=== PATIENT | male | born 1935 | race Caucasian/White ===

== ENCOUNTER 2017-04-18 21:54 | Inpatient (IN) | payer MEDICARE, OTHER ==
--- NOTE | 2017-04-18 22:16 | ERNOTE ---
Neuro HPI ER Record Presenting Symptoms: weakness, numbness, facial droop Time Seen by Provider: 04/18/17 21:56 Source: patient Exam Limitations: clinical condition Allergies/Adverse Reactions: Allergies Allergy/AdvReac Type Severity Reaction Status Date / Time No Known Allergies Allergy Unverified 04/18/17 22:09 Home Medications: HOME MEDICATIONS Bisacodyl [Laxative] 10 mg PO DAILY PRN 04/19/17 [Last Taken Unknown] Diltiazem HCl [Cardizem] 120 mg PO TID 04/19/17 [Last Taken Unknown] LORazepam [Ativan] 0.5 mg PO BID PRN 04/19/17 [Last Taken Unknown] Mirtazapine [Remeron] 15 mg PO HS 04/19/17 [Last Taken Unknown] Nutritional Supplement [Resource 2.0] 237 ml PO BID 04/19/17 [Last Taken Unknown ] Sennosides [Senna Lax] 8.6 mg PO Q2D 04/19/17 [Last Taken Unknown] carBAMazepine [Tegretol Chewable Tablets] 100 tab PO HS 04/19/17 [Last Taken Unknown] carBAMazepine [Tegretol Chewable Tablets] 200 mg PO DAILY 04/19/17 [Last Taken Unknown] fentaNYL [Duragesic] 75 mcg TD Q72H 04/19/17 [Last Taken 04/18/17 20:00] oxyCODONE HCL/ACETAMINOPHEN [Percocet 10-325 mg Tablet] 1 each PO QID PRN [Last Taken Unknown] - History of Present Illness Narrative: Care center stated that the patient was found sometime between 18:00 and 19:00 with left side weakness, facial droop and decreased mental status. Onset: cannot confirm onset, >3 hours Severity: moderate, severe - Character of Deficits New weakness: Present: LUE, LLE, facial (lt) Additional Deficits: Present: bed-ridden Associated Symptoms: Reports: fever/chills, altered mental status Review of Systems - Review of Systems Constitutional: Absent: recent illness EYE: Present: no symptoms reported ENT: Present: no symptoms reported Respiratory: Absent: cough Gastrointestinal/Abdominal: Absent: nausea, vomiting, diarrhea Genitourinary: Present: no symptoms reported Musculoskeletal: Present: no symptoms reported Skin: Present: no symptoms reported Neurological: Present: no symptoms reported Endocrine: Present: no symptoms reported Hematologic/Lymphatic: Present: no symptoms reported Psych: Present: no symptoms reported - Patient's Past Medical History Patient History - Medical: Alzheimer's Disease, Dementia, Renal Disease Patient History - Cardiac/Respiratory: CVA/Stroke - Family History Mother Family History - Medical: , No pertinent hx Father Family History - Medical: , No pertinent hx - Social History Living Situations: spouse Physical Exam - Physical Exam General Appearance: Present: wd/wn, lethargic Head Exam: Present: no evidence of injury, no tenderness w palpation Eye Exam: PERRL: bilateral Ears, Nose, Throat: Present: normal ENT inspection Neck: Present: normal inspection, nontender Respiratory: Present: no respiratory distress, normal breath sounds, no accessory muscle use, lungs clear Cardiovascular/Chest: Present: regular rate, rhythm, no murmur, normal peripheral pulses Gastrointestinal/Abdominal: Present: normal bowel sounds, nontender, nondistended, soft Back Exam: Present: normal inspection, normal range of motion Neurological Exam: Present: alert Skin Exam: Present: normal color, warm/dry Lymphatic Exam: Present: no adenopathy Jasmine Coma Scale - Assess Eye Opening: To Pain Motor: Obeys Commands Verbal: Confused - Total Coma Scale Total: 12 Initial Stroke Assessment - Date/Time of assessment Stroke Scale Date: 04/18/17 Stroke Scale Time: 22:03 - NIH Stroke Scale Level of Consciousness: Stuporus LOC Questions (Year and Age): Answers neither correctly LOC Commands (open/close eyes/fist): Performs both correctly Lateral Gaze Paresis: None Visual Field Loss: No visual loss Facial Palsy: Minor paralysis Dysarthria (speech clarity): Slurring, unintelligble Stroke Inclusion/Exclusion Cri - Inclusion Questions: No Onset of symptoms <3 1/2 hours of admission to ETC: No - Exclusion Questions: Major symptoms rapidly improving: No Seizure at onset of stroke: No SBP>185; DBP>110 at time treatment is to begin: No Patient received Heparin or Coumadin within 48 hours: No ED Progress - Results and Orders Patient's Lab Results:: I have reviewed the patient's lab results. Results and Orders: Laboratory Tests 04/18/17 04/18/17 04/18/17 22:10 22:10 22:10 WBC 10.1 Hgb 13.1 L Hct 43.4 Plt Count 181 Neutrophils % 87.9 H ESR 56 H PT 12.2 H INR (Anticoag Therapy) 1.17 H PTT ([place]) 26.2 Sodium Potassium Chloride BUN Creatinine Est GFR (Non-Af Amer) BUN/Creatinine Ratio Random Glucose Lactic Acid, Venous Calcium AST ALT Alkaline Phosphatase B-Natriuretic Peptide Total Protein Albumin Urine Color Urine Appearance Urine pH Ur Specific [place] Urine Protein Urine Glucose (UA) Urine Ketones Urine Blood Urine Nitrate Urine Bilirubin Urine Ictotest Prot Sulfosalicylic Acd Urine Urobilinogen Ur Leukocyte Esterase Urine RBC Urine WBC Ur Epithelial Cells Amorphous Sediment Urine Bacteria Hyaline Casts Fine Granular Casts Urine Culture Comments 04/18/17 04/18/17 04/18/17 22:10 22:10 22:40 WBC Hgb Hct Plt Count Neutrophils % ESR PT INR (Anticoag Therapy) PTT (Andrew) Sodium 157 H Potassium 3.2 L Chloride 121 H BUN 42 H Creatinine 1.66 H Est GFR (Non-Af Amer) 42 L BUN/Creatinine Ratio 25.3 H Random Glucose 163 H Lactic Acid, Venous 1.8 Calcium 8.7 AST 148 H ALT 103 H Alkaline Phosphatase 632 H B-Natriuretic Peptide 1764 H Total Protein 7.5 Albumin 2.8 L Urine Color Yellow Urine Appearance Cloudy Urine pH 5.5 Ur Specific [place] 1.020 Urine Protein 15 H Urine Glucose (UA) Negative Urine Ketones Negative Urine Blood 250 H Urine Nitrate Negative Urine Bilirubin 1 H Urine Ictotest Negative Prot Sulfosalicylic Acd Negative Urine Urobilinogen 4 H Ur Leukocyte Esterase 25 H Urine RBC 10-25 H Urine WBC 0-5 Ur Epithelial Cells None seen Amorphous Sediment Few - 1+ Urine Bacteria 3+ H Hyaline Casts 0-5 H Fine Granular Casts 0-5 H Urine Culture Comments Culture to follow - Vital Signs Patient's Vital Signs:: I have reviewed the patient's vital signs. - X-Ray X-Ray #1 X-Ray: chest Interpretation: Interp. by me X-ray Comments: irregularity of RLL could be early infiltrate. Enlarged cardiac shadow - CT/Ultrasound CT/Ultrasound Narrative: CT head: nothing acute - Progress/Reassessment Progress Note-Subjective: 04/19/17 03:19 We called the NH in relation to Patrice's usual mental state. They state that his speech is usually normal an understandable. At this time he is very difficult to understand. Spoke with Annie Sang [employer] about admission, she agrees with admit, inpatient. Departure Clinical Impression: CVA (cerebral vascular accident) Qualifiers: CVA mechanism: unspecified Qualified Code(s): I63.9 - Cerebral infarction, unspecified UTI (urinary tract infection) Qualifiers: Urinary tract infection type: acute pyelonephritis Qualified Code(s): N10 - Acute pyelonephritis - Departure Disposition: [facility] Condition: Fair
[2017-04-18 22:18] LABS: Hematocrit 43.4 % (42.0-52.0); Hemoglobin 13.1 gm/dL (13.5-18.0); Mean Cell Volume 91.4 fl (78-100); Mean Corpuscular Hemoglobin 27.6 pg (27-31); Mean Corpuscular Hgb Conc 30.2 g/dl (32-36); Mean Platelet Volume 11.6 fl (6.0-9.5); Neutrophil # 8.9 K/mm3 (1.3-6.0); Neutrophil % 87.9 % (42-75.0); Platelet Count 181 K/mm3 (150-450); Red Blood Count 4.75 M/mm3 (4.7-6.0); Red Cell Distribution Width 15.6 % (11.5-14.0); White Blood Count 10.1 K/mm3 (4.0-10.5)
[2017-04-18 22:29] LABS: INR 1.17 INR (0.90-1.10); Partial Thrombolplastin Time 26.2 Seconds (24-32); Prothrombin Time (Patient) 12.2 Seconds (9.4-11.4)
[2017-04-18 22:32] LABS: Albumin * 2.8 gm/dl (3.4-5.0); Anion Gap 11.6 mmol/L (6.8-13.8); BUN/Creatinine Ratio 25.3 (9.0-21.6); Bilirubin, Total 0.6 mg/dL (0.0-1.1); Ca. Corrected For Albumin 9.3 mg/dL (8.4-10.2); Calcium * 8.7 mg/dL (7.9-10.9); Carbon Dioxide 27.6 mmol/L (24-32.6); Potassium 3.2 mmol/L (3.4-4.6); Total Protein 7.5 gm/dL (6.2-8.2)
[2017-04-18] MEDS ORDERED: NORMAL SALINE 1,000 ML IV ONE (22:44)
[2017-04-18 22:52] LABS: Urine Bilirubin 1 mg/dl (NEGATIVE); Urine Blood 250 /ul (NEGATIVE); Urine Ketone Negative (NEGATIVE); Urine Nitrite Negative (NEGATIVE); Urine Protein 15 mg/dL (NEGATIVE); Urine Urobilinogen 4 EU/dl (NORMAL); Urine pH 5.5 pH (5.0-7.0)
[2017-04-18 23:04] LABS: Urine Amorphous Sediment Few - 1+ (NONE-FEW); Urine Appearance Cloudy; Urine Bacteria 3+; Urine Color Yellow; Urine Fine Granular Cast 0-5 /LPF; Urine Hyaline Cast 0-5 /LPF; Urine WBC 0-5 /hpf (0-5)
--- NOTE | 2017-04-19 04:47 | HP ---
Chief Complaint - Chief Complaint Date of Service: 04/19/17 Time of Service: 04:47 Chief Complaint: 'LT sided weakness,'. Source of HPI- Pt unobtainable due to AMS. ER provider report. History of Present Illness: Mr. Lazar is a 82-yr-old WM who is a assisted care resident at [facility]. History is unobtainable from the pt due to cognitive impairment and information was provided by the ERP. He does not also see any of our providers. His PMH is significant for Alzheimer's disease, CVA, HTN, PVD & TIA. Apparently pt had developed worsening LT sided weakness, and dysathria and was taken to [facility]. He was transferred from there to [facility] ER due to inability to perform a CT scan as their equipment was faulty. He was triaged as CVA alert en-rote and the CT scan obtained did not show any evidence of a new stroke. He was found to be febrile with a temp of 39.4. His labs showed: NA of 157, K 3.2, BUN/CR 42/1.66. UA showed UTI presence. He will need to be admitted inpatient due to UTI, Hypernatremia, MITUL, AMS & probable Pneumomia. - Patient's Past Medical History Patient History - Medical: Alzheimer's Disease, Anxiety, Chronic Pain, Depression, Renal Disease Patient History - Cardiac/Respiratory: COPD, CVA/Stroke, Hypertension, TIA - Family History Mother Family History - Medical: , No pertinent hx Father Family History - Medical: , No pertinent hx - Social History Living Situations: group home Abuse History: No History of abuse Smoking Status: Never smoker Have you smoked in the past 12 months: No - Immunizations Immunizations Up to Date: No Hx Pneumococcal Vaccination: No History of Influenza Vaccine: No Review Of Systems (GEN) - Review of Systems Additional Comments: ROS unobtainable due to Azheimer's disease. Allergies/Adverse Reactions: Allergies Allergy/AdvReac Type Severity Reaction Status Date / Time No Known Allergies Allergy Unverified 04/18/17 22:09 Home Medications: HOME MEDICATIONS Bisacodyl [Laxative] 10 mg PO DAILY PRN 04/19/17 [Last Taken Unknown] Diltiazem HCl [Diltiazem 12Hr ER] 120 mg PO TID 04/19/17 [Last Taken Unknown] LORazepam [Ativan] 0.5 mg PO BID PRN 04/19/17 [Last Taken Unknown] Mirtazapine [Remeron] 15 mg PO HS 04/19/17 [Last Taken Unknown] Nutritional Supplement [Resource 2.0] 237 ml PO BID 04/19/17 [Last Taken Unknown ] Sennosides [Senna Lax] 8.6 mg PO Q2D 04/19/17 [Last Taken Unknown] carBAMazepine [Tegretol Chewable Tablets] 100 tab PO HS 04/19/17 [Last Taken Unknown] carBAMazepine [Tegretol Chewable Tablets] 200 mg PO DAILY 04/19/17 [Last Taken Unknown] fentaNYL [Duragesic] 75 mcg TD Q72H 04/19/17 [Last Taken 04/18/17 20:00] oxyCODONE HCL/ACETAMINOPHEN [Percocet 10-325 mg Tablet] 1 each PO QID PRN [Last Taken Unknown] Exam - Exam Vital Signs: Vital Signs - Last Taken Temp 36.5 C 04/19/17 04:00 Pulse 102 H 04/19/17 04:00 Resp 20 04/19/17 04:00 BP 171/63 04/19/17 04:00 Pulse Ox 92 04/19/17 04:00 Constitutional: Present: Lethargic, Elderly, Thin and frail ENT Exam: Present: dry mucous membranes Eye Exam: bilateral eye: normal inspection Neck: Present: non-tender, full range of motion Back Exam: Present: normal inspection Breasts: Present: Exam deferred Respiratory: Present: rales - RT base, No wheezing Cardiovascular/Chest: Present: regular rate, rhythm, no edema, no murmur Abdomen: Present: Normal bowel sounds, soft, nontender /Rectal: Present: Other - [place] Catheter Extremity: Present: no pedal edema, other - RT above knee amputation, LT foot toe amputation. Skin Exam: Present: warm/dry Lymphatic: Present: no adenopathy Neurologic: Present: other - Non- verbal Appearance: Present: impaired insight Eye contact: Absent: good eye contact, normal speech Thoughts: Present: no apparent hallucination Diagnostic Studies: Laboratory Results WBC 10.1 K/mm3 (4.0-10.5) 04/18/17 22:10 RBC 4.75 M/mm3 (4.7-6.0) 04/18/17 22:10 Hgb 13.1 gm/dL (13.5-18.0) L 04/18/17 22:10 Hct 43.4 % (42.0-52.0) 04/18/17 22:10 MCV 91.4 fl (78-100) 04/18/17 22:10 MCH 27.6 pg (27-31) 04/18/17 22:10 MCHC 30.2 g/dl (32-36) L 04/18/17 22:10 RDW 15.6 % (11.5-14.0) H 04/18/17 22:10 Plt Count 181 K/mm3 (150-450) 04/18/17 22:10 MPV 11.6 fl (6.0-9.5) H 04/18/17 22:10 Immature Gran % (Auto) 0.30 % (0.001-0.429) 04/18/17 22:10 Immature Gran # (Auto) 0.03 K/mm3 (0.000-0.0310) 04/18/17 22:10 Neutrophils % 87.9 % (42-75.0) H 04/18/17 22:10 Lymphocytes % 4.2 % (20-51) L 04/18/17 22:10 Monocytes % 7.5 % (0.0-9) 04/18/17 22:10 Eosinophils % 0.0 % (0.0-3.0) 04/18/17 22: Basophils % 0.1 % (0.0-1.0) 04/18/17 22:10 Nucleated RBC % 0.0 k/mm3 (0-1) 04/18/17 22:10 Neutrophils # 8.9 K/mm3 (1.3-6.0) H 04/18/17 22:10 Lymphocytes # 0.4 k/mm3 (1.5-3.5) L 04/18/17 22:10 Monocytes # 0.8 k/mm3 (0.0-1.0) 04/18/17 22:10 Eosinophils # 0.0 k/mm3 (0.0-0.7) 04/18/17 22:10 Absolute Basophils 0.0 k/mm3 (0.0-0.1) 04/18/17 22:10 ESR 56 mm/hr (0-10) H 04/18/17 22:10 PT 12.2 Seconds (9.4-11.4) H 04/18/17 22:10 INR (Anticoag Therapy) 1.17 INR (0.90-1.10) H 04/18/17 22:10 PTT ([place]) 26.2 Seconds (24-32) 04/18/17 22:10 Sodium 157 mmol/L (132-142) H 04/18/17 22:10 Plasma Sodium 158 mmol/L (130-142) H 04/18/17 22:10 Potassium 3.2 mmol/L (3.4-4.6) L 04/18/17 22:10 Chloride 121 mmol/L (97-106) H 04/18/17 22:10 Carbon Dioxide 27.6 mmol/L (24-32.6) 04/18/17 22:10 Anion Gap 11.6 mmol/L (6.8-13.8) 04/18/17 22:10 BUN 42 mg/dL (6-23) H 04/18/17 22:10 Creatinine 1.66 mg/dL (0.4-1.4) H 04/18/17 22:10 Est GFR (Non-Af Amer) 42 mL/min (60-130) L 04/18/17 22:10 BUN/Creatinine Ratio 25.3 (9.0-21.6) H 04/18/17 22:10 Random Glucose 163 mg/dL (70-110) H 04/18/17 22:10 Lactic Acid, Venous 1.8 mmol/L (0.4-1.9) 04/18/17 22:10 Calcium 8.7 mg/dL (7.9-10.9) 04/18/17 22:10 Calcium Adj for Albumin 9.3 mg/dL (8.4-10.2) 04/18/17 22:10 Total Bilirubin 0.6 mg/dL (0.0-1.1) 04/18/17 22:10 AST 148 U/L (0-48) H 04/18/17 22:10 ALT 103 U/L (19-67) H 04/18/17 22:10 Alkaline Phosphatase 632 U/L (50-170) H 04/18/17 22:10 B-Natriuretic Peptide 1764 pg/mL (5-650) H 04/18/17 22:10 Total Protein 7.5 gm/dL (6.2-8.2) 04/18/17 22:10 Albumin 2.8 gm/dl (3.4-5.0) L 04/18/17 22:10 Urine Color Yellow 04/18/17 22:40 Urine Appearance Cloudy 04/18/17 22:40 Urine pH 5.5 pH (5.0-7.0) 04/18/17 22:40 Ur Specific [place] 1.020 SP.GR. (1.005-1.030) 04/18/17 22:40 Urine Protein 15 mg/dL (NEGATIVE) H 04/18/17 22:40 Urine Glucose (UA) Negative mg/dL (NEGATIVE) 04/18/17 22:40 Urine Ketones Negative mg/dL (NEGATIVE) 04/18/17 22:40 Urine Blood 250 /ul (NEGATIVE) H 04/18/17 22:40 Urine Nitrate Negative (NEGATIVE) 04/18/17 22:40 Urine Bilirubin 1 mg/dl (NEGATIVE) H 04/18/17 22:40 Urine Ictotest Negative (NEGATIVE) 04/18/17 22:40 Prot Sulfosalicylic Acd Negative mg/dL (0) 04/18/17 22:40 Urine Urobilinogen 4 EU/dl (NORMAL) H 04/18/17 22:40 Ur Leukocyte Esterase 25 /ul (NEGATIVE) H 04/18/17 22:40 Urine RBC 10-25 /hpf (0-5) H 04/18/17 22:40 Urine WBC 0-5 /hpf (0-5) 04/18/17 22:40 Ur Epithelial Cells None seen /hpf (0-5) 04/18/17 22:40 Amorphous Sediment Few - 1+ (NONE-FEW) 04/18/17 22:40 Urine Bacteria 3+ (NONE) H 04/18/17 22:40 Hyaline Casts 0-5 /LPF (NONE) H 04/18/17 22:40 Fine Granular Casts 0-5 /LPF (NONE) H 04/18/17 22:40 Urine Culture Comments Culture to follow 04/18/17 22:40 Assessment/Plan - Assessment/Plan (1) UTI (urinary tract infection) Assessment: Will start on Rocephin, wait on urine cultures. Monitor CBC in am. Laboratory Tests 04/18/17 22:40 Ur Leukocyte Esterase 25 H Urine RBC 10-25 H Urine Bacteria 3+ H Hyaline Casts 0-5 H Problem: Acute Qualifiers: Urinary tract infection type: acute pyelonephritis Qualified Code(s): N10 - Acute pyelonephritis (2) Hypernatremia Assessment: Likely Hypernatremia with euvolemia- will switch IVF to 5% dextrose in water. BMP in am. Laboratory Tests 04/18/17 22:10 Sodium 157 H Plasma Sodium 158 H Chloride 121 H Problem: Acute (3) MITUL (acute kidney injury) Assessment: No other baseline labs to compare . Should seen an improvement IVF Hydration. Laboratory Tests 04/18/17 22:10 BUN 42 H Creatinine 1.66 H Problem: Acute (4) Altered mental status Assessment: likely due to infection and dehydration. Should see an improvment once infection clears and with improved hydration. Hold Narcotics, Remeron and Ativan. Problem: Acute (5) CVA (cerebral vascular accident) Assessment: Involve PT/OT for continued strength. No new stroke on CT. LT sided weakness and difficulty with speech probably worsened by infection from UTI. Will have speech evaluate swallowing. Problem: Chronic (6) PVD (peripheral vascular disease) Problem: Chronic (7) HTN (hypertension) Problem: Chronic (8) Alzheimers disease Problem: Chronic
[2017-04-19] MEDS: DEXTROSE 5 % IN WATER 1,000 ML IV PRN ×2 (05:18→18:38)
[2017-04-19] MEDS ORDERED: BISACODYL 5 MG TABLET.DR PO PRN (05:57)
[2017-04-19] MEDS: POTASSIUM CHLORIDE 100 ML IV SCH ×4 (08:49→14:38)
[2017-04-19] MEDS: SENNOSIDES 8.6 MG TABLET PO SCH (08:50)
[2017-04-19] MEDS: carBAMazepine 100 MG TAB.CHEW PO SCH ×2 (08:51→20:51)
[2017-04-19] MEDS ORDERED: NUTRITIONAL SUPPLEMENT PO SCH (09:00)
[2017-04-19] MEDS ORDERED: DILTIAZEM HCL 60 MG TABLET PO SCH (09:00)
[2017-04-19] MEDS: ENOXAPARIN SODIUM 40 MG/0.4 ML SYRG SC SCH (11:04)
[2017-04-19] MEDS: ASPIRIN 325 MG TABLET.DR PO SCH (17:55)
[2017-04-19 18:10] LABS: Amylase * 78 U/L (25-115); Lipase 234 U/L (73-393)
[2017-04-20] MEDS: DEXTROSE 5 % IN WATER 1,000 ML IV PRN ×2 (02:53→13:07)
[2017-04-20 06:20] LABS: Albumin * 2.4 gm/dl (3.4-5.0); Anion Gap 14.5 mmol/L (6.8-13.8); BUN/Creatinine Ratio 19.4 (9.0-21.6); Bilirubin, Total 0.4 mg/dL (0.0-1.1); Ca. Corrected For Albumin 9.2 mg/dL (8.4-10.2); Calcium * 8.2 mg/dL (7.9-10.9); Carbon Dioxide 24.9 mmol/L (24-32.6); Potassium 3.4 mmol/L (3.4-4.6)
--- NOTE | 2017-04-20 08:11 | PN ---
Subjective - Date and Time Seen Date: 04/20/17 Time: 08:06 Subjective Narrative: Patient for MRI/MRCP under anesthesia today. Pleasantly confused. Objective - Review of Systems Generalized/Overall Review: Reports: No Symptoms Reported EENTM: Reports: No Symptoms Reported Respiratory: Reports: No Symptoms Reported Cardiac: Reports: No Symptoms Reported Abdominal: Reports: No Symptoms Reported Genitourinary Symptoms: Reports: No Symptoms Reported Musculoskeletal Complaints: Reports: No Symptoms Reported Neurological: Reports: No Symptoms Reported Skin: Reports: No Symptoms Reported Endocrine: Reports: No Symptoms Reported Misc: All systems neg except as marked - Confused - Vitals Vitals: Last Vital Signs Temp 37 C 04/20/17 01:00 Pulse 82 04/20/17 01:00 Resp 20 04/20/17 01:00 BP 151/82 04/20/17 01:00 Pulse Ox 92 04/20/17 01:00 - Abnormal Lab Findings Abnormal Lab Findings: Abnormal Lab Results 04/19/17 04/20/17 Range/Units Unknown 05:33 Sodium 150 H (132-142) mmol/L Plasma Sodium 151 H (130-142) mmol/L Chloride 114 H (97-106) mmol/L Anion Gap 14.5 H (6.8-13.8) mmol/L BUN 25 H (6-23) mg/dL Est GFR (Non-Af Amer) 57 L D (60-130) mL/min Random Glucose 136 H (70-110) mg/dL GGT 1101 H (4-104) U/L AST 58 H (0-48) U/L Alkaline Phosphatase 450 H (50-170) U/L Total Protein 6.0 L (6.2-8.2) gm/dL Albumin 2.4 L (3.4-5.0) gm/dl - Exam Constitutional: Present: Alert - AAO x 1, Elderly ENT Exam: Present: hearing grossly normal Neck: Present: supple Breasts: Present: Exam deferred Respiratory: Present: decreased breath sounds, No rales, No wheezing Cardiovascular/Chest: Present: regular rate, rhythm, no JVD, no murmur Abdomen: Present: Normal bowel sounds, soft, nontender, nondistended Extremity: Present: no calf tenderness, other - Right AKA, Left foot transphalangeal amputation Cauti Physician Documentation - Urinary Catheter Management Urethral ([place]) Date of Insertion: 04/18/17 Time of Insertion: 22:52 Assessment/Plan - Problems/Diagnosis (1) Altered mental status Problem: Acute Narrative: metabolic encephalopathy r/o CVA/TIA (2) CVA (cerebral vascular accident) Problem: Acute Qualifiers: CVA mechanism: unspecified Qualified Code(s): I63.9 - Cerebral infarction, unspecified Narrative: for MRI under anesthesia. (3) Hypernatremia Problem: Acute Narrative: improved to 150 from 157. continue D5W. (4) Elevated LFTs Problem: Acute Narrative: US shows chollelithiasis and dilated ducts. will do MRCP. lipase WNL. (5) UTI (urinary tract infection) Problem: Acute Qualifiers: Urinary tract infection type: site unspecified Narrative: continue with IV rocephin. await C & S. (6) Alzheimers disease Problem: Chronic (7) HTN (hypertension) Problem: Chronic (8) PVD (peripheral vascular disease) Problem: Chronic
[2017-04-20] MEDS: carBAMazepine 100 MG TAB.CHEW PO SCH ×2 (08:34→20:11)
[2017-04-20] MEDS: DILTIAZEM HCL 60 MG TABLET PO SCH ×3 (08:35→16:36)
[2017-04-20] MEDS: ASPIRIN 325 MG TABLET.DR PO SCH (08:35)
[2017-04-20] MEDS: ENOXAPARIN SODIUM 40 MG/0.4 ML SYRG SC SCH (10:04)
[2017-04-20] MEDS ORDERED: FUROSEMIDE 10 MG/ML VIAL IV ONE ×2 (13:42→16:21)
[2017-04-21] MEDS: DEXTROSE 5 % IN WATER 1,000 ML IV PRN (04:12)
[2017-04-21] MEDS: SENNOSIDES 8.6 MG TABLET PO SCH (05:05)
[2017-04-21 05:49] LABS: Hematocrit 38.6 % (42.0-52.0); Hemoglobin 11.9 gm/dL (13.5-18.0); Mean Cell Volume 90.8 fl (78-100); Mean Corpuscular Hgb Conc 30.8 g/dl (32-36); Mean Platelet Volume 12.6 fl (6.0-9.5); Neutrophil % 67.4 % (42-75.0); Platelet Count 116 K/mm3 (150-450); Red Blood Count 4.25 M/mm3 (4.7-6.0); Red Cell Distribution Width 15.2 % (11.5-14.0); White Blood Count 4.4 K/mm3 (4.0-10.5)
--- NOTE | 2017-04-21 05:50 | PN ---
Subjective - Date and Time Seen Date: 04/21/17 Time: 05:22 Subjective Narrative: Patient seen today in bed pleasantly confused. He has a strong non productive cough. He denies fever, chills, abdominal pain. Objective - Review of Systems EENTM: Reports: No Symptoms Reported Respiratory: Reports: Cough Cardiac: Reports: No Symptoms Reported Abdominal: Reports: No Symptoms Reported Genitourinary Symptoms: Reports: No Symptoms Reported Musculoskeletal Complaints: Reports: No Symptoms Reported Neurological: Reports: No Symptoms Reported Skin: Reports: No Symptoms Reported Endocrine: Reports: No Symptoms Reported - Vitals Vitals: Last Vital Signs Temp 37.0 C 04/21/17 02:46 Pulse 78 04/21/17 02:46 Resp 20 04/21/17 02:46 BP 128/68 04/21/17 02:46 Pulse Ox 96 04/21/17 02:46 - Abnormal Lab Findings Abnormal Lab Findings: Abnormal Lab Results 04/20/17 Range/Units 05:33 Sodium 150 H (132-142) mmol/L Plasma Sodium 151 H (130-142) mmol/L Chloride 114 H (97-106) mmol/L Anion Gap 14.5 H (6.8-13.8) mmol/L BUN 25 H (6-23) mg/dL Est GFR (Non-Af Amer) 57 L D (60-130) mL/min Random Glucose 136 H (70-110) mg/dL AST 58 H (0-48) U/L Alkaline Phosphatase 450 H (50-170) U/L Total Protein 6.0 L (6.2-8.2) gm/dL Albumin 2.4 L (3.4-5.0) gm/dl - Exam Constitutional: Present: Elderly ENT Exam: Present: hearing grossly normal Neck: Present: full range of motion Breasts: Present: Exam deferred Respiratory: Present: decreased breath sounds, rales, expiration (prolonged) Cardiovascular/Chest: Present: normal peripheral pulses, no chest tenderness Abdomen: Present: Normal bowel sounds, soft, nontender, nondistended /Rectal: Present: Exam deferred Extremity: Present: normal range of motion, non-tender, normal inspection Skin Exam: Present: normal color, warm/dry, other - bruising BL arm Neurologic: Present: disoriented x 3 Appearance: Present: impaired insight Eye contact: Present: good eye contact, compulsive Thoughts: Present: no apparent hallucination Cauti Physician Documentation - Urinary Catheter Management Urethral ([place]) Date of Insertion: 04/18/17 Time of Insertion: 22:52 Assessment/Plan Plan Narrative: Altered mental status likely due to UTI metabolic encephalopathy r/o CVA/TIA CVA (cerebral vascular accident) MRI under anesthesia: Possible tiny area of cortical ischemia suggesting the right frontal lobe. No definite signs of acute infract. Hypernatremia On adm Na+ 157---->150 gradually improving while on D5W Continue to monitor BMP Elevated LFTs US shows chollelithiasis and dilated ducts. Unable to obtain MRCP while under general anesthesia Lipase was within normal limits. UTI (urinary tract infection) Seen on UA Urine culture preliminary no growth continue with IV Rocephin Code status: DNR GI ppx: DVT ppx: Time 20 minutes - Problems/Diagnosis (1) MITUL (acute kidney injury) Problem: Acute (2) CVA (cerebral vascular accident) Problem: Acute Qualifiers: CVA mechanism: unspecified Qualified Code(s): I63.9 - Cerebral infarction, unspecified (3) UTI (urinary tract infection) Problem: Acute Qualifiers: Urinary tract infection type: site unspecified
[2017-04-21 06:09] LABS: Albumin * 2.5 gm/dl (3.4-5.0); Anion Gap 13.2 mmol/L (6.8-13.8); BUN/Creatinine Ratio 17.2 (9.0-21.6); Bilirubin, Total 0.4 mg/dL (0.0-1.1); Ca. Corrected For Albumin 9.2 mg/dL (8.4-10.2); Calcium * 8.3 mg/dL (7.9-10.9); Carbon Dioxide 24.9 mmol/L (24-32.6); Potassium 3.1 mmol/L (3.4-4.6); Total Protein 7.1 gm/dL (6.2-8.2)
[2017-04-21] MEDS: ACETYLCYSTEINE 100 MG/ML VIAL IH SCH ×3 (07:17→18:32)
[2017-04-21] MEDS: ALBUTEROL SULFATE 2.5 MG/0.5 ML VIAL.NEB IH PRN ×2 (07:18→13:14)
[2017-04-21] MEDS ORDERED: POTASSIUM CHLORIDE 10 MEQ TABLET.SA PO SCH (08:45)
[2017-04-21] MEDS: ASPIRIN 325 MG TABLET.DR PO SCH (09:38)
[2017-04-21] MEDS: DILTIAZEM HCL 60 MG TABLET PO SCH ×3 (09:38→16:25)
[2017-04-21] MEDS: POTASSIUM CHLORIDE 20 MEQ TABLET.SA PO SCH ×2 (09:39→16:25)
[2017-04-21] MEDS: carBAMazepine 100 MG TAB.CHEW PO SCH ×2 (09:40→20:28)
[2017-04-21] MEDS: ENOXAPARIN SODIUM 40 MG/0.4 ML SYRG SC SCH (10:27)
[2017-04-21] MEDS ORDERED: ATORVASTATIN CALCIUM 40 MG TABLET PO STA (11:27)
[2017-04-21 12:05] LABS: Chol/HDL Risk Ratio 5.4 mg/dL (3.3-5.0)
[2017-04-21] MEDS: SENNOSIDES/DOCUSATE SODIUM 1 TAB TABLET PO SCH ×2 (12:07→20:28)
--- NOTE | 2017-04-21 15:57 | PN ---
Progess Note - Interim Narrative: 04/21/17 15:52 The patient has a large pericardial effusion with cardiac tamponade, etiology uncertain, acute vs probably chronic. His CTS showed inteahepatic and extrahepatic including pancreatic duct dilatation, recommend ERCP. We were going to transfer him to [facility] for further evalautiaon and treatment but we found out he was comfort cares only and his POA Dean Klein has confirmed that to us. He wants us to be conservative and when the time comes to do just comfort cares only.
[2017-04-22] MEDS: ACETYLCYSTEINE 100 MG/ML VIAL IH SCH ×2 (00:36→06:10)
[2017-04-22] MEDS: ALBUTEROL SULFATE 2.5 MG/0.5 ML VIAL.NEB IH PRN ×2 (00:38→06:12)
[2017-04-22] MEDS: DEXTROSE 5 % IN WATER 1,000 ML IV PRN (01:43)
[2017-04-22 06:46] VITALS: BP 142/56
[2017-04-22] MEDS: POTASSIUM CHLORIDE 10 MEQ TABLET.SA PO SCH ×2 (08:47→08:58)
[2017-04-22] MEDS: SENNOSIDES/DOCUSATE SODIUM 1 TAB TABLET PO SCH (08:48)
[2017-04-22] MEDS: DILTIAZEM HCL 60 MG TABLET PO SCH (08:48)
[2017-04-22] MEDS: ASPIRIN 325 MG TABLET.DR PO SCH (08:48)
[2017-04-22] MEDS: carBAMazepine 100 MG TAB.CHEW PO SCH (08:49)
[2017-04-22] MEDS ORDERED: FUROSEMIDE 40 MG TABLET PO SCH (09:00)
--- NOTE | 2017-04-22 09:15 | DS ---
(1) Altered mental status Diagnosis(s): metabolic encephalopathy- hypernatremia Problem: Acute (2) CVA (cerebral vascular accident) Diagnosis(s): acute ischemia right fontal lobe vs artifact. ASA started. Problem: Acute Qualifiers: CVA mechanism: unspecified Qualified Code(s): I63.9 - Cerebral infarction, unspecified (3) Hypernatremia Problem: Acute (4) Elevated LFTs Diagnosis(s): dilated extra and intr hepatic ducts. hepatic congestion . Problem: Acute (5) UTI (urinary tract infection) Problem: Acute Qualifiers: Urinary tract infection type: site unspecified (6) Alzheimers disease Problem: Chronic (7) HTN (hypertension) Problem: Chronic (8) PVD (peripheral vascular disease) Problem: Chronic (9) Pericardial effusion with cardiac tamponade Diagnosis(s): likely chronic Problem: Chronic Description of Stay: Patrice Lazar is a 82-yr-old WM who is a jail care resident at [facility] who was admitted on 04/19/2017 for worsening of left sided weakness. . History is unobtainable from the pt due to cognitive impairment and information was provided by the ERP. He does not also see any of our providers. His PMH is significant for Alzheimer's disease, CVA, HTN, PVD & TIA. Apparently pt had developed worsening LT sided weakness, and dysathria and was taken to [facility]. He was transferred from there to [facility] ER due to inability to perform a CT scan as their equipment was faulty. He was triaged as CVA alert en-rote and the CT scan obtained did not show any evidence of a new stroke. He was found to be febrile with a temp of 39.4. His labs showed: NA of 157, K 3.2, BUN/CR 42/1.66. UA showed UTI presence. He was admitted inpatient due to UTI, Hypernatremia, MITUL, AMS & probable Pneumomia. He was started on D5W hydration , IV rocephin. PO ASA. His LFT was elevated and US done showed intrahepatic and extrahepatic ductal dilatation and chlolethiasis. An MRI of the head under anesthesia was done and it showed acute ischemic change in the right frontal lobe vs artifact. MRCP was ordered but could not be done as he needed to be awake to follow some instructions. A CTS of the abdomen and plevis was done and it showed pericardial effusion and ductal dilation of intrahepatic , extrahepatic and pancreatic ducts , and recommended ERCP. An Echo showed large pericardial effusion with Echo sign of cardiac tamponade. I talked tot he POA and he did not want aggressive measures to be done to the patient , just comfort care when the time comes. He is now being discharged. Consider hospice consult. Procedures Performed: none Discharge Disposition: [facility] Disposition: [facility] Condition: Poor Discharge Activity: Activity as tolerated Discharge Diet: Low salt Referrals: George Reddy MD [Primary Care Provider] - Additional Patient Instructions (free text): Follow up with his PCP in 1 week. Will be followed up by his Dr in the care center. Prescriptions (Any new or edited meds): Aspirin [Aspirin Enteric Coated] 325 mg PO DAILY #30 tablet. Furosemide [Lasix] 40 mg PO DAILY #30 tablet Potassium Chloride [Klor-Con 10] 10 meq PO DAILY #30 tablet. Complete Home Medications List: Complete Home Medication List: Bisacodyl [Laxative] 10 mg PO DAILY PRN 04/19/17 Diltiazem HCl [Cardizem] 120 mg PO TID 04/19/17 LORazepam [Ativan] 0.5 mg PO BID PRN 04/19/17 Mirtazapine [Remeron] 15 mg PO HS 04/19/17 Nutritional Supplement [Resource 2.0] 237 ml PO BID 04/19/17 Sennosides [Senna Lax] 8.6 mg PO Q2D 04/19/17 carBAMazepine [Tegretol Chewable Tablets] 100 tab PO HS 04/19/17 carBAMazepine [Tegretol Chewable Tablets] 200 mg PO DAILY 04/19/17 fentaNYL [Duragesic] 75 mcg TD Q72H 04/19/17 oxyCODONE HCL/ACETAMINOPHEN [Percocet 10-325 mg Tablet] 1 each PO QID PRN Aspirin [Aspirin Enteric Coated] 325 mg PO DAILY #30 tablet. 04/22/17 Furosemide [Lasix] 40 mg PO DAILY #30 tablet 04/22/17 Potassium Chloride [Klor-Con 10] 10 meq PO DAILY #30 tablet.sa 04/22/17
[2017-04-22 09:33] LABS: Anion Gap 15.1 mmol/L (6.8-13.8); BUN/Creatinine Ratio 11.6 (9.0-21.6); Calcium * 8.9 mg/dL (7.9-10.9); Carbon Dioxide 23.3 mmol/L (24-32.6); Estimated Creat Clear 37.2; Potassium 3.4 mmol/L (3.4-4.6)
[2017-04-22] MEDS: ENOXAPARIN SODIUM 40 MG/0.4 ML SYRG SC SCH (10:16)
--- NOTE | 2017-04-27 10:28 | ECHO ---
This report is available in the EMR
== END 2017-04-22 11:05 | DRG 64 ==
LOC: ER 21:54 → MS 04-19 03:14
PROVIDERS: ADMIT Nurse Practitioner; ATTEND Internal Medicine
PROC: 0T9B7ZZ Drainage of Bladder, Via Natural or Artificial Opening (ICD-10-PCS; principal; 2017-04-18)
PROC: B246ZZZ Ultrasonography of Right and Left Heart (ICD-10-PCS; 2017-04-21)
DX: I63.9 Cerebral infarction, unspecified (principal); G93.41 Metabolic encephalopathy; E87.0 Hyperosmolality and hypernatremia; I69.354 Hemiplegia and hemiparesis following cerebral infarction affecting left non-dominant side; N39.0 Urinary tract infection, site not specified; I31.3 Pericardial effusion (noninflammatory); I31.4 Cardiac tamponade; N17.9 Acute kidney failure, unspecified; R53.1 Weakness; R47.1 Dysarthria and anarthria; R41.82 Altered mental status, unspecified; K80.20 Calculus of gallbladder without cholecystitis without obstruction; E86.0 Dehydration; G30.9 Alzheimer's disease, unspecified; F02.80 Dementia in other diseases classified elsewhere, unspecified severity, without behavioral disturbance, psychotic disturbance, mood disturbance, and anxiety; I10 Essential (primary) hypertension; J44.9 Chronic obstructive pulmonary disease, unspecified; I73.9 Peripheral vascular disease, unspecified; Z89.611 Acquired absence of right leg above knee